=== PATIENT | male | born 1965 | race Caucasian/White ===

== ENCOUNTER 2017-10-03 12:56 | Observation (INO) | payer BC ==
[~2017-10-03] VITALS: Ht 165.1 cm; Wt 66.3 kg
[~2017-10-03 12:56] MED LIST: ASPIR-LOW81 MG PO; ATORVASTATIN CA40 MG PO; CARVEDILOL3.125 MG PO; LISINOPRIL2.5 MG PO; NEXIUM20 MG PO; TYLENOL WITH C1 EACH PO; XARELTO20 MG PO; ZANTAC150 MG PO
[2017-10-03 13:40] LABS: HEMATOCRIT 39.3 % (38.0-50.0); HEMOGLOBIN 14.6 G/DL (12.5-16.6); MCH 31.2 PG (29.0-34.0); MCHC 37.2 G/DL (30.0-36.0); PLATELET COUNT 224 K/uL (156-360); RBC DIS.WIDTH-CV 11.5 % (11.8-14.6); RED BLOOD COUNT 4.68 M/uL (4.00-5.50); WHITE BLOOD COUNT 9.1 K/uL (4.1-10.2)
[2017-10-03 13:49] LABS: CHLORIDE 107 mEq/L (99-109); POTASSIUM 3.6 mEq/L (3.7-5.4); SODIUM 142 mEq/L (136-147)
[2017-10-03 13:51] LABS: GLUCOSE 104 mg/dL (70-99)
[2017-10-03 13:55] LABS: CREATININE 0.9 mg/dL (0.6-1.3); GFR ESTIMATE (CALCULATED) > 59 mL/min/ (58.99-99999)
[2017-10-03 13:56] LABS: UREA NITROGEN (BUN) 11 mg/dL (9-23)
[2017-10-03 14:03] LABS: TROP-I INTERPRETATION NEGATIVE; TROPONIN-I < 0.01 ng/mL (0.0-0.30)
[2017-10-03] MEDS ORDERED: XARELTO20 MG PO (15:16)
[2017-10-03] MEDS ORDERED: LIPITOR40 MG PO (15:17)
[2017-10-03] MEDS ORDERED: NITROSTAT0.4 MG SL (15:18)
[2017-10-03] MEDS ORDERED: PLAVIX75 MG PO (15:18)
[2017-10-03] MEDS ORDERED: PROTONIX40 MG PO (15:18)
[2017-10-03] MEDS ORDERED: TYLENOL EXTRA500 MG PO (15:19)
[2017-10-03 17:44] VITALS: BP 135/80
[2017-10-03 20:00] VITALS: BP 119/76
[2017-10-03 21:15] LABS: TROP-I INTERPRETATION NEGATIVE; TROPONIN-I < 0.01 ng/mL (0.0-0.30)
[2017-10-04 00:08] VITALS: BP 113/67
[2017-10-04 02:58] LABS: TROP-I INTERPRETATION NEGATIVE; TROPONIN-I < 0.01 ng/mL (0.0-0.30)
[2017-10-04 04:44] VITALS: BP 130/81
[2017-10-04 05:44] LABS: CHLORIDE 105 mEq/L (99-109); POTASSIUM 3.5 mEq/L (3.7-5.4); SODIUM 140 mEq/L (136-147)
[2017-10-04 05:46] LABS: GLUCOSE 96 mg/dL (70-99)
[2017-10-04 05:49] LABS: CREATININE 0.9 mg/dL (0.6-1.3); GFR ESTIMATE (CALCULATED) > 59 mL/min/ (58.99-99999)
[2017-10-04 05:50] LABS: UREA NITROGEN (BUN) 17 mg/dL (9-23)
[2017-10-04 07:40] VITALS: BP 114/68
== END 2017-10-04 10:02 | disposition home or self-care (01) ==
LOC: EME 12:56 → 4SOUTH 15:34 → EDOF 15:34 → ENRESERV 15:37 → 4SOUTH 16:55
PROVIDERS: Hospitalist
DX: R42 Dizziness and giddiness (principal); R07.89 Other chest pain; F41.9 Anxiety disorder, unspecified; I25.10 Atherosclerotic heart disease of native coronary artery without angina pectoris; I25.5 Ischemic cardiomyopathy; I25.2 Old myocardial infarction; I48.0 Paroxysmal atrial fibrillation; I10 Essential (primary) hypertension; Z79.01 Long term (current) use of anticoagulants; Z79.02 Long term (current) use of antithrombotics/antiplatelets; Z87.891 Personal history of nicotine dependence; Z88.6 Allergy status to analgesic agent
CPT/HCPCS: 71046; 80048; 84484; 85027; 93005; 99281; 99285; G0378

== ENCOUNTER 2017-10-24 09:51 | Day surgery (SDC) | payer BC ==
[~2017-10-24] VITALS: Ht 165.1 cm; Wt 68.0 kg
[~2017-10-24 09:51] MED LIST changes: +LIPITOR40 MG PO; +NITROSTAT0.4 MG SL; +PLAVIX75 MG PO; +PROTONIX40 MG PO; +TYLENOL EXTRA500 MG PO
== END 2017-10-24 17:38 | disposition home or self-care (01) ==
LOC: CATH 09:51
PROC: 4A033BC Measurement of Arterial Pressure, Coronary, Percutaneous Approach (ICD-10-PCS; principal; 2017-10-24)
PROC: B2111ZZ Fluoroscopy of Multiple Coronary Arteries using Low Osmolar Contrast (ICD-10-PCS; principal; 2017-10-24)
PROC: 4A023N7 Measurement of Cardiac Sampling and Pressure, Left Heart, Percutaneous Approach (ICD-10-PCS; principal; 2017-10-24)
DX: I25.10 Atherosclerotic heart disease of native coronary artery without angina pectoris (principal); I25.82 Chronic total occlusion of coronary artery; I25.2 Old myocardial infarction; I48.0 Paroxysmal atrial fibrillation; Z79.01 Long term (current) use of anticoagulants; Z79.02 Long term (current) use of antithrombotics/antiplatelets; Z88.6 Allergy status to analgesic agent; E78.5 Hyperlipidemia, unspecified; F17.211 Nicotine dependence, cigarettes, in remission
CPT/HCPCS: 85347; C1769; C1887; J0153; J1644; J2250; J3010; J7040